=== PATIENT | female | born 1960 | race Caucasian/White ===

== ENCOUNTER → 2019-02-25 11:43 | Outpatient (CLI) | payer SELFPAY ==
[2019-02-25 15:11] LABS: Anion Gap 5 (5-15); BUN 10 mg/dL (7-18); BUN/Creat Ratio 11.6 RATIO (10-20); Calcium,Total 9.4 mg/dL (8.5-10.1); Chloride 108 mmol/L (98-107); Cholesterol 196 mg/dL (200); Creatinine, Serum 0.86 mg/dL (0.55-1.02); EST Glomerular Filtration Rate 71 mL/min (>60); Est Glom Filt Rate - Afr Amer 86 mL/min (>60); Glucose 72 mg/dL (74-106); High Density Lipoprotein 87 mg/dL; Sodium Level 142 mmol/L (136-145); Triglycerides 56 mg/dL; Very Low Density Lipoprotein 11 mg/dL (5-40)
== END ==
PROVIDERS: Family Provider Family Medicine; PCP Family Medicine; Referring Provider Family Medicine; Visit Provider Family Medicine
DX: Z00.00 Encounter for general adult medical examination without abnormal findings (principal)
CPT/HCPCS: 36415; 80048; 80061; 82306; 84443

== ENCOUNTER → 2019-02-27 11:48 | Outpatient (CLI) | payer SELFPAY ==
--- NOTE | 2019-02-27 11:52 | BI_ITS ---
MAMMOGRAPHY - BILATERAL SCREENING REASON FOR EXAM: Female, 58 years old. Routine annual screening examination. PERTINENT HISTORY: Non-contributory. TECHNIQUE: Digital bilateral breast cheri (3D mammographic acquisition) in the CC and MLO projections. 2-D mediolateral oblique (MLO) and craniocaudad (CC) views of both breasts were obtained. CAD: Full Field Digital Mammography with Computer Added Detection was performed. COMPARISON: Comparison is made with prior examination dated February 19, 2014. FINDINGS: Breast Composition: There are scattered areas of fibroglandular density. There are no dominant masses or suspicious calcifications. Stable small benign-appearing bilateral axillary lymph nodes. No other significant abnormalities are identified. There has been no significant change since the prior study. BI/SCREEN MAMM (CAD) W/CHERI BILAT IMPRESSION: Stable bilateral screening mammogram. Yearly follow-up mammogram recommended. (A) ASSESSMENT CATEGORY: BIRADS Category 2: Benign. A letter regarding these results will be sent to the patient by the facility within 30 days. Approximately 10% of breast cancers are not detected by mammography. A normal mammogram should not delay biopsy of a clinically suspicious abnormality. [id number] Electronically Signed: Bashir Guzman, at 8:14 EST , Service support ,
== END ==
PROVIDERS: Family Provider Family Medicine; PCP Family Medicine; Referring Provider Family Medicine; Visit Provider Family Medicine
DX: Z00.00 Encounter for general adult medical examination without abnormal findings (principal); Z12.31 Encounter for screening mammogram for malignant neoplasm of breast
CPT/HCPCS: 77063; 77067

== ENCOUNTER → 2020-05-15 11:27 | Outpatient (CLI) | payer SELFPAY ==
--- NOTE | 2020-05-15 11:40 | RAD_ITS ---
STUDY: X-RAY - CERVICAL SPINE REASON FOR EXAM: Female, 59 years old. CERVICAL RADICULOPATHY. NECK PAIN X 1 WEEK THAT RADIATES DOWN LEFT ARM. HX CERVICAL FUSION 25 YEARS AGO. TECHNIQUE: 5 view(s) of the cervical spine were obtained. COMPARISON: None FINDINGS: Normal anterior atlantoaxial articulation. Normal odontoid process. Normal cervical lordosis. Status post discectomy and fusion at C5/C6 with anatomic alignment. Normal vertebral bodies and endplates. Focal disc space narrowing and osteophyte formation at C6-C7 consistent with degenerative disc disease. Normal visualized intervertebral neuroforamina. The soft tissue structures are unremarkable. RAD/Cerv Spine 4 or 5 Views IMPRESSION: Status post discectomy and fusion at C5/C6 with degenerative disc disease at C6-C7. Electronically Signed: Osmin Watson MD at 16:57 EST Tel , Service support ,
== END ==
PROVIDERS: PCP Family Medicine; Referring Provider Chiropractor; Visit Provider Chiropractor
DX: M54.12 Radiculopathy, cervical region (principal)
CPT/HCPCS: 72050

== ENCOUNTER 2020-06-19 09:00 | Outpatient (RCR) | payer SELFPAY ==
--- NOTE | 2020-05-27 10:54 | HP.PTEVAL ---
Patient's Visit Information AMERICA ROSALES is a 59 year old F referred to Physical Therapy by Dr. Osmani Cruz DC with a diagnosis of cervical radiculopathy. Date of Evaluation: 05/27/20 Physical Therapist: Rom Nur, DPT, OCS, CSCS - Visit Plan Frequency: 2-3x /Week Duration: 4-6 Weeks Plan: up to 2-3x/week for 2-4 weeks for : cervical Tamanna based ROM progression of forces to tolerance, manual as needed traction and PROM, strength posture adn L UE ext rotators and flexors of shoulder, Return to function activities. Pt scheduled one visit next week and if motion and strength improved then can progress to home strength. if not improving then work on manual and strength progressiona nd increase frequency. Back to family doctor if strength not improved in two weeks. - Subjective Has neck and shoulder pain. Got pickle ball injury in R knee on 04/22 and treated adn it got better. 1.5 weeks later she woke up with neck pain.Has been going to chiropractor and also has h/o fusion in neck c56. 80-90% better with chiropractic. However was really sore yesterday after mondays visit. Pain is in L neck and shoulder. Down arm to elbow. it is intermittent and worse with lying down at night. Lifting while bending forward is tough. Hard to lift arm and cannot move it to swim which she enjoys. Babysitting grandchild 9 months has been eliminated as she cannot pick him up. Numbness and tingling is present at night . Has been sleeping on back as lying on side is painful. Not employed. Normally would be swimming 3x/week, walking 6 days week, pickle ball 2x/week. - Pain L neck adn shoulder. Pain Intensity (Out of 10): 2 Pain Intensity Range: 0, 8 - Objective Posture is forward scap adn FW head minimally. reflexes 2/3 bi and tri. Sensation UE WNL to gross light touch. Strength L flexiona dn abduction adn ext rotation 3/5, elbow flex ext 4/5, IR 4/5 all on L, R is 4/5. Hand and wrist ROM and strength WFL. elbow ROM WFL, Shoulder AROM WNL except is hesitant.cervical aROM 40 ext adn 60 B rotations to start but hesitant to get to end range. Improved ROM after repeated ext to 55 adn 65 rotations but still hesitant, not overly painful. Scapula are moving well. - c/s compression but tenses alot. - drop arm, - ext rotation lag but weak. Repeated motion: repeated protrusiona dn flexion NE. repeated retraction NE. repeated ext increases ROM wuickly and slightly increased strength l ext rotation. - Goals Goal 1:: Full c/s AROM without pain or hesitation Goal Time Frame: 4-6 Weeks Goal 2:: Symmetrial strength L to R shoulder flexors and eternal rotators Goal Time Frame: 4-6 Weeks Goal 3:: Pt feel back to 90% of simón ctivities without increased symptoms. Goal Time Frame: 4-6 Weeks Goal 4:: neck oswestry score 10 or less. Goal Time Frame: 4-6 Weeks - Rehabilitation Potential Physical Therapy Diagnosis: cervical radiculopathy Rehabilitation Potential: Fair - Anticipated Interventions Patient/Client Instruction: Educate patient on: Condition, Plan of Care For the Purpose of:: To decrease pain, To increase ROM Therapeutic Exercise to Include: Strength training, Postural training, Passive ROM, Active ROM, Tamanna Exercises For the Purpose of:: To decrease pain, To increase ROM, To improve muscle performance and motor function, To improve gait and locomotor functions Manual Therapy Techniques to Include: Mobilization, Passive ROM For the Purpose of:: To decrease pain, To increase ROM, To improve muscle performance and motor function Thank you for the opportunity to evaluate your patient. For Medicare and Medicare HMO plans, please review the plan of care and approve it. It will need to be FAXED BACK to us at [phone] for Medicare purposes. For Medicare only, by signing this I certify the plan of care. Please let me know if there are questions or concerns regarding this plan of care. Physician Signature: Date:
--- NOTE | 2020-06-19 09:34 | HP.PTREVAL ---
Dr. Osmani Cruz, THAI, It has been my pleasure to treat AMERICA ROSALES over the last 6 visits for cervical radiculopathy. Please see the progress note below for an update on the physical therapy plan of care! Subjective: I did great. Ex goign well. Not really any neck pain. Still hard to lie on side. Walked 7 miles per day and kayaked and paddleboard. Feels like she is getting stronger. Wants to play pickleball. No f/u with doctor. HEP going well. Objective/Function: 65 L rotation and 60 R rotation. Ext is 70 degrees. 22# flexion, 11 # ext rotation. firm endfeel R rotation. Posture is improved. ROM is improved. Strength in L UE is improving. Overall doing much better adn getting back to activity. L arm still weak vs R but much improved. Appropriate to cotninue via HEP adn f/u in 3 weeks to ensure cotniuation of progress toward goals. May start gentle pickle ball and swimming. Plan Plan: f/u 2-3 weeks to check motion, strength L UE and pickle ball/swimming tolerance. Fair prognosis. Goals Goal 1:: Full c/s AROM without pain or hesitation Goal Time Frame: 4-6 Weeks Goal Progress: met except R rotation Goal 2:: Symmetrial strength L to R shoulder flexors and eternal rotators Goal Time Frame: 4-6 Weeks Goal Progress: improving Goal 3:: Pt feel back to 90% of simón ctivities without increased symptoms. Goal Time Frame: 4-6 Weeks Goal Progress: 85% Goal 4:: neck oswestry score 10 or less. Goal Time Frame: 4-6 Weeks Goal Progress: Goal Met Anticipated Interventions Patient/Client Instruction: Educate patient on: Condition, Plan of Care For the Purpose of:: To decrease pain, To increase ROM Therapeutic Exercise to Include: Strength training, Postural training, Passive ROM, Active ROM, Melani Exercises For the Purpose of:: To decrease pain, To increase ROM, To improve muscle performance and motor function, To improve gait and locomotor functions Manual Therapy Techniques to Include: Mobilization, Passive ROM For the Purpose of:: To decrease pain, To increase ROM, To improve muscle performance and motor function Please do not hesitate to contact me at [phone] by phone or if you have questions or concerns regarding this new plan of care! Sincerely, Rom Nur, DPT, OCS, CSCS
--- NOTE | 2020-07-02 09:33 | HP.PTDCSUM ---
It has been my pleasure to treat AMERICA ROSALES referred by Dr. Osmain Cruz DC, with the diagnosis of cervical radiculopathy for a total of 6 visit(s). Discharge Date: Please see the following information for a summary of their discharge status. Subjective: I did great. Ex goign well. Not really any neck pain. Still hard to lie on side. Walked 7 miles per day and kayaked and paddleboard. Feels like she is getting stronger. Wants to play pickleball. No f/u with doctor. HEP going well. L neck adn shoulder. Pain Intensity (Out of 10): 0 % Improvement: 90 Objective/Function: 65 L rotation and 60 R rotation. Ext is 70 degrees. 22# flexion, 11 # ext rotation. firm endfeel R rotation. Posture is improved. ROM is improved. Strength in L UE is improving. Overall doing much better adn getting back to activity. L arm still weak vs R but much improved. Appropriate to cotninue via HEP adn f/u in 3 weeks to ensure cotniuation of progress toward goals. May start gentle pickle ball and swimming. Goal 1:: Full c/s AROM without pain or hesitation Goal Progress: met except R rotation Goal 2:: Symmetrial strength L to R shoulder flexors and eternal rotators Goal Progress: improving Goal 3:: Pt feel back to 90% of simón ctivities without increased symptoms. Goal Progress: 85% Goal 4:: neck oswestry score 10 or less. Goal Progress: Goal Met Plan: Pt cancelled last visit stating she is doing well adn is very happy. Will not need to return. D/C If there are questions or concerns regarding this patient's physical therapy, please feel free to call me at [phone]. Thank you for the referral of this patient. Sincerely, Rom Nur, DPT, OCS, CSCS
== END 2020-06-19 19:00 | disposition home or self-care (01) ==
LOC: PT 09:00
PROVIDERS: PCP Family Medicine; Referring Provider Chiropractor; Visit Provider Chiropractor
DX: M54.12 Radiculopathy, cervical region (principal)
CPT/HCPCS: 97012; 97110; 97140; 97162; 97164

== ENCOUNTER 2022-05-25 04:28 | Emergency (ER) | payer OTHER, SELFPAY ==
[2022-05-25 04:29] VITALS: PULSE 74; RESP 19; TEMP 36.1; O2SAT 99; BMI 26.0
--- NOTE | 2022-05-25 04:45 | CT_ITS ---
STUDY: CT BRAIN WITHOUT CONTRAST REASON FOR EXAM: Female, 61 years old patient with two recent syncopal episodes while on the toilet. Patient has had closed head injury. RADIATION DOSAGE (If Supplied By Facility): CTDIvol = ( 44.99 ) mGy, DLP = ( 829.85 ) mGycm TECHNIQUE: Transaxial CT imaging of the brain was performed without administration of intravenous contrast material. Multiplanar reformations are submitted for interpretation. Individualized dose optimization techniques were used for this CT. COMPARISON: No relevant priors. FINDINGS: Normal soft tissue structures. Normal calvarium. There is mild cerebral atrophy with widening of the extra-axial spaces and ventricular dilatation. Normal white matter tracts of the cerebral hemispheres. Normal basal ganglia and thalami. Normal brainstem. Normal cerebellum. There is no intracranial hemorrhage. There are no findings of an acute ischemic infarction. Normal visualized paranasal sinuses. CT/Brain/Head without Contrast IMPRESSION: 1. Chronic involutional changes of the brain. 2. No CT evidence of acute intracranial hemorrhage. Electronically Signed: Le Rendon MD at 6:10 EST ,
--- NOTE | 2022-05-25 04:45 | EKG12_ITS ---
Test Reason : DYSRHYTHMIA Blood Pressure : / mmHG Vent. Rate : 069 BPM Atrial Rate : 069 BPM P-R Int : 130 ms QRS Dur : 078 ms QT Int : 434 ms P-R-T Axes : 055 077 044 degrees QTc Int : 465 ms Normal sinus rhythm Normal ECG Confirmed by RACIEL WU, ZACARIAS ([id number]), production editor AMAURI COLLINS ([id number]) on 05/27/2022 10:27:37 AM Referred By: BB Confirmed By:ZACARIAS SCHRADER MD
--- NOTE | 2022-05-25 04:46 | EDS_ITS ---
HPI HPI - GI History of Present Illness Chief Complaint: Nausea/Vomiting/Diarrhea Informant: patient, spouse/S.O. and EMS Nausea/Vomiting/Emesis GI Symptom: Positive for Nausea and Vomiting Onset: Hours (2) Quality: Positive for Nonbilious Severity: Severe Diarrhea/Melena/Hematochezia GI Symptom: Positive for Diarrhea; Negative for Melena or Hematochezia Onset: Hours (2) Stool Quality: Positive for Watery; Negative for Black, Maroon or BRB per rectum Severity: Severe Narrative Narrative: Patient woke up about 2 hours ago feeling poorly, having chills, and since then has had profuse nonbloody nonbilious vomiting and diarrhea. She denies any abdominal pain. She states she feels extremely weak. states she was unable to stand or walk because of that; she tried, stood up and passed out, fell down and hit her head. She denies having contact with anyone ill that she knows of recently. She ate similar foods this past day to her and he is not ill. No recent travel out of the area or the country. She felt fine when she went to bed last night, she presents around 4:30 AM for this. Patient provides very little history, most of it comes from her . He states she has been doing intermittent fasting for the past week, and yesterday she donated blood. PFSH PFS Medical History no medical history Home Medications ondansetron 4 mg disintegrating tablet 8 mg PO Q8H PRN PRN Nausea #20 tabs 05/25/22 [Rx Last Taken Unknown] Social History Smoking Status: Never smoker ROS ROS ED Review of Systems ROS Unobtainable: other Details: limited ROS due to condition Constitutional Constitutional ED: Reports chills, fatigue, headache(s) and weakness; Denies fever(s) Eyes Eyes: Denies change in vision or diplopia ENT ENT ED: Denies rhinorrhea or sore throat Cardiovascular Cardiovascular: Denies chest pain or palpitations Respiratory/Chest Respiratory/Chest: Denies cough or dyspnea Gastrointestinal Gastrointestinal: Reports diarrhea, nausea and vomiting; Denies abdominal pain or melena Musculoskeletal Musculoskeletal: Denies back pain or neck pain Neurologic Neurologic: Reports headache(s); Denies paresthesias or weakness EXAM Physical Exam Const Vital Signs: 05/25/22 04:29 Temperature 97 F L Temperature Source Temporal Pulse Rate 74 Respiratory Rate 19 H Pulse Ox 99 Oxygen Delivery Method Room Air Positive well nourished and well developed Constitutional Narrative: Malaised-appearing, no distress. Tremulous diffusely/symmetrically, no rigors. General Appearance ED: well developed HEENT Reports moist mucous membranes normocephalic and atraumatic Eyes PERRL and EOMs intact bilaterally Neck full ROM and supple Resp normal respiratory effort and clear to auscultation bilaterally Cardio regular rate, regular rhythm and no murmurs Rate: Negative for tachycardic GI non-tender and non-distended Auscultation: hyperactive bowel sounds Palpation: soft Back/Spine no CVA tenderness General Back: other FROM Extremity normal to inspection and full ROM Extremity Narrative: Able to range extremities with very limited effort on behalf of patient General Extremety ED: Negative for edema, pulses abnormal or tenderness General Extremity: Negative for edema or pulses abnormal Neuro oriented x3, CN's II-XII intact bilaterally and no sensory deficits noted Sensorium / Orientation: awake and alert Motor Exam: strength 5/5 throughout Psych Mood & Affect: anxious Skin no rashes or lesions noted and no wounds Skin Narrative: Nasal bridge contusion/swelling, no other wounds MDM MDM MDM Narrative Medical decision making narrative: Work-up does show a nonspecific mild leukocytosis with a trend toward leftward shift, as well as mild elevation in BUN and creatinine compared to her baseline. Her total bilirubin is 1.5, there is no prior readings for this, the rest of her LFTs are normal. This is of unknown significance in context of no jaundice or abdominal pain, I do not think gallstones here really are likely, since she had no pain at all. On reevaluation she is feeling much better after a liter of IV fluids and Zofran. She has had no diarrhea thus far after couple hours in the emergency department to send for enteric bacterial panel, the etiology of this is unknown certainly could be viral as there has been prevalence of that in the community recently, and she has no specific risk factors in etiology. I offered admission she would prefer to go home, therefore we will give her p.o. challenge and got her up out of bed to see if she could walk. She says she was feeling much better, she said that at home she was having trouble walking because of being so tremulous and having a history of hip issues in combination. Lab Data Attestation: I reviewed the patient's lab results. Labs: Laboratory Results - last 24 hr 05/25/22 05/25/22 04:40 04:40 WBC 13.8 H RBC 3.99 L Hgb 12.3 Hct 36.1 L MCV 90.5 MCH 30.8 MCHC 34.1 RDW Std Deviation 47.8 H RDW Coeff of Valerie 14.2 Plt Count 242 MPV 10.5 Immature Gran % (Auto) 0.400 Neut % (Auto) 91.9 H Lymph % (Auto) 3.9 L [place] % (Auto) 3.0 Eos % (Auto) 0.5 Baso % (Auto) 0.3 Absolute Neuts (auto) 12.7 H Absolute Lymphs (auto) 0.54 L Nucleated RBC % 0 Sodium 141 Potassium 3.8 Chloride 107 Carbon Dioxide 23.0 Anion Gap 11 BUN 20 H Creatinine 1.25 H Estim Creat Clear Calc 43.12 Est GFR (MDRD) Af Amer 56 L Est GFR (MDRD) Non-Af 46 L BUN/Creatinine Ratio 16.0 Glucose 185 H Calcium 10.0 Total Bilirubin 1.50 H AST 25 ALT 23 Alkaline Phosphatase 62 Troponin I High Sens 7 Total Protein 7.7 Albumin 3.9 Globulin 3.8 Albumin/Globulin Ratio 1.0 Lipase 104 Rhythm Strip Rhythm Strip: Sinus Rhythm Rate: 70 Ectopy: None EKG Initial EKG: Attestation: I personally reviewed and interpreted this EKG as follows: Interpretation: Sinus Rhythm and No Acute Injury Pattern Comments: normal EKG Discharge Plan Triage Chief Complaint: Nausea/Vomiting/Diarrhea ED Provider: Aly Bazan Dx/Rx/DC Orders Clinical Impression: Nausea vomiting and diarrhea, Mild dehydration Instructions: ED Gastroenteritis, Viral (Adult) Prescriptions: New ondansetron [ondansetron] 4 mg tablet,disintegrating 8 mg PO Q8H PRN PRN (Reason: Nausea) Qty: 20 0RF Primary Care Provider: Last Rodriguez Referrals: Last Rodriguez MD [Primary Care Provider] - 1-2 Days if not improving Disposition Disposition: Home, Self Care
[2022-05-25 05:13] LABS: Absolute Lymphocyte Count 0.54 X10^3/uL (0.83-4.51); Absolute Neutrophil Count 12.7 X10^3/uL (2.0-7.7); Basophil# 0.04 X10^3/uL; Basophil% 0.3 % (0-1); Eosinophil# 0.07 X10^3/uL; Eosinophils% 0.5 % (0-5); Hematocrit 36.1 % (37-47); Hemoglobin 12.3 g/dL (12.0-15.0); Lymphocyte # 0.54 X10^3/ul (0.83-4.51); Lymphocyte % 3.9 % (19-41); Mean Corp Hgb Conc 34.1 g/dL (32-36); Mean Corpuscular Hgb 30.8 pg (27.0-32.0); Mean Corpuscular Volume 90.5 fL (81-99); Mean Platelet Vol. 10.5 fl (6.2-12.0); Monocyte# 0.42 X10^3/uL; NRBC Flagged by Analyzer 0 % (0-5); Neutrophil # 12.72 X10^3/uL (2.7-7.7); Neutrophil % 91.9 % (47-70); POSITIVE DIFFERENTIAL YES; Platelet Count 242 K/mm3 (150-450); RBC Distribution Width CV 14.2 % (11.6-14.6); RBC Distribution Width SD 47.8 fl (35.1-43.9); Red Blood Count 3.99 M/mm3 (4.2-5.4); White Blood Count 13.8 K/mm3 (4.4-11.0)
[2022-05-25 05:15] LABS: Differential Indicated SCAN CRITERIA MET
[2022-05-25 05:31] LABS: AST(SGOT) 25 U/L (15-37); Alanine Aminotransfer ALT/SGPT 23 U/L (13-56); Albumin, Serum 3.9 g/dL (3.2-5.0); Alkaline Phosphatase 62 U/L (45-117); Anion Gap 11 (5-15); BUN 20 mg/dL (7-18); Chloride 107 mmol/L (98-107); Creatinine, Serum 1.25 mg/dL (0.55-1.02); EST Glomerular Filtration Rate 46 mL/min (>60); Est Glom Filt Rate - Afr Amer 56 mL/min (>60); Estimated Creatinine Clearance 43.12 ml/min; Globulin 3.8 g/dL (2.2-4.2); Glucose 185 mg/dL (74-106); Lipase 104 U/L (73-393); Potassium 3.8 mmol/L (3.5-5.1); Protein, Total 7.7 g/dL (6.4-8.2); Sodium Level 141 mmol/L (136-145); Troponin-I HS 7 pg/mL (3.0-54.0)
[2022-05-25] MEDS: Ondansetron 4 MG/2 ML Vial IV (05:41)
[2022-05-25] MEDS: 0.9% Normal Saline 1,000 ML 999 ML IV ×2 (05:41→06:08)
[2022-05-25 08:47] VITALS: BP 117/69; PULSE 73; RESP 17; O2SAT 98
== END 2022-05-25 08:47 | disposition home or self-care (01) ==
PROVIDERS: Emergency Provider Emergency Medicine; PCP Family Medicine; Visit Provider Emergency Medicine
DX: E86.0 Dehydration (principal); R11.2 Nausea with vomiting, unspecified; R55 Syncope and collapse; R19.7 Diarrhea, unspecified
CPT/HCPCS: 70450; 80053; 83690; 84484; 85025; 93005; 96374; 99285; J7030; J2405

== ENCOUNTER → 2023-02-20 | Outpatient (CLI) | payer SELFPAY ==
--- NOTE | 2023-02-20 11:57 | EKG12_ITS ---
Test Reason : PRE OP Blood Pressure : / mmHG Vent. Rate : 064 BPM Atrial Rate : 064 BPM P-R Int : 128 ms QRS Dur : 082 ms QT Int : 398 ms P-R-T Axes : 069 083 054 degrees QTc Int : 410 ms Normal sinus rhythm Normal ECG Confirmed by MICHAEL WU, TIFFANY ([id number]), news video editor MILO VOEGL ([id number]) on 02/27/2023 7:29:48 AM Referred By: Sachin Russo Confirmed By:YOVANY RODRIGUEZ MD
[2023-02-20 12:51] LABS: Absolute Lymphocyte Count 1.26 X10^3/uL (0.83-4.51); Absolute Neutrophil Count 5.7 X10^3/uL (2.0-7.7); Basophil# 0.06 X10^3/uL; Basophil% 0.8 % (0-1); Eosinophils% 1.3 % (0-5); Hematocrit 40.7 % (37-47); Hemoglobin 13.2 g/dL (12.0-15.0); Lymphocyte # 1.26 X10^3/ul (0.83-4.51); Lymphocyte % 16.6 % (19-41); Mean Corp Hgb Conc 32.4 g/dL (32-36); Mean Corpuscular Hgb 30.3 pg (27.0-32.0); Mean Corpuscular Volume 93.3 fL (81-99); Mean Platelet Vol. 10.5 fl (6.2-12.0); Monocyte# 0.45 X10^3/uL; Monocyte% 5.9 % (0-10); NRBC Flagged by Analyzer 0 % (0-5); Neutrophil # 5.69 X10^3/uL (2.7-7.7); Neutrophil % 74.9 % (47-70); Platelet Count 229 K/mm3 (150-450); RBC Distribution Width CV 13.7 % (11.6-14.6); RBC Distribution Width SD 46.6 fl (35.1-43.9); Red Blood Count 4.36 M/mm3 (4.2-5.4); White Blood Count 7.6 K/mm3 (4.4-11.0)
[2023-02-20 13:26] LABS: Albumin, Serum 3.5 g/dL (3.2-5.0); Anion Gap 5 (5-15); BUN 13 mg/dL (7-18); BUN/Creat Ratio 13.3 RATIO (10-20); Calcium,Total 9.2 mg/dL (8.5-10.1); Chloride 105 mmol/L (98-107); Creatinine, Serum 0.98 mg/dL (0.55-1.02); EST Glomerular Filtration Rate 61 mL/min (>60); Est Glom Filt Rate - Afr Amer 74 mL/min (>60); Glucose 82 mg/dL (74-106); Potassium 3.9 mmol/L (3.5-5.1); Sodium Level 139 mmol/L (136-145)
== END | disposition home or self-care (01) ==
PROVIDERS: PCP Family Medicine; Referring Provider Specialist; Visit Provider Specialist
DX: Z01.810 Encounter for preprocedural cardiovascular examination (principal); Z01.818 Encounter for other preprocedural examination
CPT/HCPCS: 36415; 80048; 82040; 85025; 93005

== ENCOUNTER → 2023-07-05 | Outpatient (CLI) | payer OTHER, SELFPAY ==
[2023-07-05 15:23] LABS: Erythrocyte Sedimentation Rate 14 mm/hr (0-30)
[2023-07-05 15:43] LABS: Vitamin B12 613 pg/mL (211-911); Vitamin D,25 Hydroxy 66.4 ng/mL
[2023-07-05 15:49] LABS: ALB/GLOB Ratio 1.1 RATIO (0.9-2.4); AST(SGOT) 27 U/L (15-37); Alanine Aminotransfer ALT/SGPT 23 U/L (13-56); Alkaline Phosphatase 73 U/L (45-117); Anion Gap 6 (5-15); BUN 16 mg/dL (7-18); BUN/Creat Ratio 16.4 RATIO (10-20); CRP < 2.90 mg/L (0.0-3.0); Calcium,Total 9.5 mg/dL (8.5-10.1); Chloride 105 mmol/L (98-107); Cholesterol 216 mg/dL (200); Creatinine, Serum 0.97 mg/dL (0.55-1.02); EST Glomerular Filtration Rate 61 mL/min (>60); Est Glom Filt Rate - Afr Amer 74 mL/min (>60); Globulin 3.6 g/dL (2.2-4.2); Glucose 87 mg/dL (74-106); High Density Lipoprotein 91 mg/dL; Magnesium 2.2 mg/dL (1.6-2.6); Potassium 3.9 mmol/L (3.5-5.1); Protein, Total 7.6 g/dL (6.4-8.2); Rheumatoid Factor < 10.0 IU/mL (<15); Sodium Level 139 mmol/L (136-145); Thyroid Stim Hormone (TSH) 1.43 uIU/mL (0.358-3.74); Triglycerides 73 mg/dL; Very Low Density Lipoprotein 15 mg/dL (5-40)
[2023-07-07 14:10] LABS: ANTINUCLEAR ANTIBODIES DIRECT Negative (Negative)
== END | disposition home or self-care (01) ==
PROVIDERS: Family Medicine; PCP Family Medicine; Visit Provider Family Medicine
DX: M25.50 Pain in unspecified joint (principal); Z13.6 Encounter for screening for cardiovascular disorders
CPT/HCPCS: 36415; 80053; 80061; 82306; 82607; 83735; 84443; 85652; 86038; 86140; 86431

== ENCOUNTER → 2023-08-01 | Outpatient (CLI) | payer MEDICARE, SELFPAY ==
--- NOTE | 2023-08-01 16:00 | BI_ITS ---
MAMMOGRAPHY - BILATERAL SCREENING REASON FOR EXAM: Female, 63 years old. Routine annual screening examination. PERTINENT HISTORY: Non-contributory. TECHNIQUE: Digital bilateral breast cheri (3D mammographic acquisition) in the CC and MLO projections. 2-D mediolateral oblique (MLO) and craniocaudad (CC) views of both breasts were obtained. CAD: Full Field Digital Mammography with Computer Added Detection was performed. COMPARISON: Comparison is made with prior study dated February 27, 2019. FINDINGS: Breast Composition: There are scattered areas of fibroglandular density. There are no dominant masses or suspicious calcifications. No other significant abnormalities are identified. There has been no significant change since the prior study. BI/SCRN MAMM (CAD)W/CHERI BILAT IMPRESSION: Stable bilateral screening mammogram. Yearly follow-up mammogram recommended. (A) ASSESSMENT CATEGORY: BIRADS Category 1: Negative. A letter regarding these results will be sent to the patient by the facility within 30 days. Approximately 10% of breast cancers are not detected by mammography. A normal mammogram should not delay biopsy of a clinically suspicious abnormality. [id number] Electronically Signed: Bashir Guzman MD at 10:04 EDT ,
--- NOTE | 2023-08-01 16:00 | BD_ITS ---
STUDY: DUAL ENERGY X-RAY ABSORPTIOMETRY / DXA REASON FOR EXAM: Female, 63 years old. V76.12ScreeningBONE DENSITY REASON FOR EXAM TECHNIQUE: Bone Mineral Density (BMD) measurements of lumbar spine and right forearm were obtained. COMPARISON: None. FINDINGS: Lumbar Spine (L1-L4): g/cm2 (1.156) / T-score (1.0) / Z-score (2.8) Findings are suggestive of normal bone density with a low fracture risk. Right Forearm: g/cm2 (0.462) / T-score (-2.2) / Z-score (-0.6) BD/Dexa Bone Density Study IMPRESSION: The patient is considered osteopenic as outlined below according to World Jose Organization (WHO) criteria with a high fracture risk. Reference Information: The T-score is the number of standard deviations above or below the standard which is normal for young adults at their peak bone mineral density. The World Health Organization (WHO) interprets the T-scores as follows: Above -1 Normal bone density Between -1 and -2.5 Osteopenia Equal to / or below -2.5 Osteoporosis As a practical clinical guideline, osteopenia may be graded as follows: Mild -1 through -1.5 Moderate -1.6 through -2.0 Severe -2.1 through -2.4 The Z-score is the number of standard deviations above or below age-matched controls. A Z-score of less than -1.5 would be considered abnormal. References: 1. NIH Osteoporosis and Related Bone Diseases www osteo.org 2. International Society for Clinical Densitometry www iscd.org 3. National Osteoporosis Foundation www nof.org Electronically Signed: Bashir Guzman MD at 9:13 EDT ,
== END | disposition home or self-care (01) ==
PROVIDERS: PCP Family Medicine; Referring Provider Family Medicine; Visit Provider Family Medicine
DX: Z12.31 Encounter for screening mammogram for malignant neoplasm of breast (principal); Z13.820 Encounter for screening for osteoporosis; N95.9 Unspecified menopausal and perimenopausal disorder
CPT/HCPCS: 77063; 77067; 77080

== ENCOUNTER 2023-09-15 07:26 | Day surgery (SDC) | payer MEDICARE, SELFPAY ==
[2023-09-15 07:44] VITALS: BP 118/73; PULSE 71; RESP 18; TEMP 36.3; O2SAT 98; BMI 25.2
[2023-09-15] MEDS: Lactated Ringers 1,000 ML 15 ML IV (07:54)
--- NOTE | 2023-09-15 08:28 | H&P.OPEN ---
HPI - General HPI Narrative AMERICA ROSALES, is a 63 F who presents for screening colonoscopy. Her last colonoscopy was 10 years ago and was normal. She denies any abdominal pain or blood in the stool. She has family history of colon cancer in her father at an older age. PFS Medical History (Updated 09/12/23 @ 10:13 by Thelma Angela) Wears glasses Post-menopausal Arthritis Non-smoker Leg cramps Arthralgia Family history of colon cancer in father Home Medications ?Medication ?Instructions ?Recorded ?Last Taken ?Type ondansetron 4 mg disintegrating 8 mg (2 x 4 mg) PO Q8H PRN PRN 05/25/22 Unknown Rx tablet Nausea #20 tabs biotin 5,000 mcg chewable tablet 5,000 mcg PO DAILY 07/10/23 09/13/23 History cholecalciferol (vitamin D3) 50 50 mcg PO DAILY 07/10/23 09/13/23 History mcg (2,000 unit) capsule ibuprofen 200 mg tablet 400 mg PO Q6H PRN pain 07/10/23 Unknown History vit B complex 100 combo no.2 100 1 tab PO DAILY 07/10/23 09/13/23 History mg tablet,extended release (Balanced B-100 Complex) vit C 226 mg-vit E 90 mg-copper 1 cap PO DAILY 07/10/23 09/13/23 History 0.8 mg-zinc oxide-lutein 5 mg capsule (PreserVision Lutein) Allergy/AdvReac Type Severity Reaction Status Date / Time No Known Allergies Allergy Verified 09/15/23 07:42 Family History (Updated 07/10/23 @ 12:57 by Diamond Scott) Father Colon cancer Surgical History (Updated 09/12/23 @ 10:13 by Thelma Angela) History of 2 sections History of left hip replacement Hx of neck surgery History of right hip replacement Hx of colonoscopy Social History (Updated 07/10/23 @ 12:58 by Diamond Scott) household members: spouse current occupational status: retired Smoking Status: Never smoker details: occasional alcohol substance use type: does not use Past Medical/Surgical History Planned Operation Planned Operative Procedure(s): COLONOSCOPY-OA Previous Hospitalizations/Surgeries HX Hospitalizations: No Any Problems With Anesthesia: No You/Your Family Experience Fever (Hyperthermia) With Anes: No Cholinesterase deficiency: No Cardiovascular Hx Hypertension: No Respiratory Hx Sleep Apnea: No Hx Respiratory Tract Infection/Cold (presently): No Do You Snore Loudly (louder than talking or can be heard): Yes Do You Often Feel Tired/ Fatigued/ Sleepy Dring Daytime?: No Has Anyone Observed You Stop Breathing During Sleep?: No Result (for STOP score): Negative Smoking Status: Never smoker Neurological Does patient have nerve stimulator: No Miscellaneous Recent Exposure to Contagious Disease: No Allergies No Known Allergies Allergy (Verified 09/15/23 07:42) Discharge Is Pt Admitted From a Jail, or a Detention: No After D/C, Where Do you Plan to Go: Return Home Vital Signs Vital Signs Vital Signs: 09/15/23 07:44 09/15/23 07:44 Temperature 97.3 F L Temperature Source Temporal Pulse Rate 71 Respiratory Rate 18 Respiratory Pattern Normal Blood Pressure 118/73 Blood Pressure Mean 88 Blood Pressure Source Monitor Blood Pressure Position Semi-Fowlers Blood Pressure Location Right Arm Pulse Ox 98 Oxygen Delivery Method Room Air Weight Weight: 156 lb 8.451 oz Body Mass Index (BMI) 25.2 Physical Exam Const alert and oriented x3 HEENT normocephalic Eyes PERRL Resp normal respiratory effort and normal air movement Cardio regular rate and regular rhythm GI soft to palpation, non-tender and non-distended Extremity normal to inspection Assessment & Plan Assessment/Plan (1) Encounter for screening for malignant neoplasm of colon: PLAN: I explained endoscopy in detail to the patient. I explained the risks including but not limited to stroke or heart attack with anesthesia, perforation of the GI tract, bleeding, infection. I explained that any of these could necessitate further emergency surgery. The patient understands and all questions were answered sufficiently. The patient wishes to proceed with procedure. Nomi Preciado MD Pager: [facility] [address] [place] [address], [address] [place] [address] Office: Surgery Risks - Colonoscopy Risks Include but are not Limited To: Risks include but are not limited to: Bleeding, perforation requiring further surgery, inability to complete colonoscopy requiring barium enema.
--- NOTE | 2023-09-15 08:54 | OP.CCLET_ITS ---
09/15/2023 Mare Pierre Do Re : Colonoscopy procedure for Marcela Garcia Dear Ignacio This procedure was performed on Friday, September 15, 2023. My impressions and recommendations are as follows: Impressions : - The entire examined colon is normal on direct and retroflexion views. - No specimens collected. Recommendations : - Discharge patient to home. - Resume previous diet. - Continue present medications. - Repeat colonoscopy in 10 years for screening purposes. My findings are described in the full procedure note, which is enclosed. If I can be of further assistance, please feel free to contact me at Doctor phone number(s): , Work: . Sincerely, Nomi Preciado MD 09/15/2023 8:54:05 AM This report has been signed electronically.
--- NOTE | 2023-09-15 08:54 | OP.COLON_ITS ---
Patient Name: Marcela Garcia Procedure Date: 09/15/2023 8:25 AM Date of : 1960 Age: 63 Procedure: Colonoscopy Indications: Screening for colorectal malignant neoplasm Providers: Nomi Preciado MD Referring MD: Mare Pierre Do Medicines: Propofol per Anesthesia Patient Profile: This is a 63 year old female. Refer to note in patient chart for documentation of history and physical. Last Colonoscopy: 10 years ago. Complications: No immediate complications. Procedure: Pre-Anesthesia Assessment: - Prior to the procedure, a History and Physical was performed, and patient medications and allergies were reviewed. The patient's tolerance of previous anesthesia was also reviewed. The risks and benefits of the procedure and the sedation options and risks were discussed with the patient. All questions were answered, and informed consent was obtained. Prior Anticoagulants: The patient has taken no anticoagulant or antiplatelet agents. After reviewing the risks and benefits, the patient was deemed in satisfactory condition to undergo the procedure. After I obtained informed consent, the scope was passed under direct vision. Throughout the procedure, the patient's blood pressure, pulse, and oxygen saturations were monitored continuously. The pediatric colonoscope was introduced through the anus and advanced to the cecum, identified by appendiceal orifice and ileocecal valve. The colonoscopy was performed without difficulty. The patient tolerated the procedure well. The quality of the bowel preparation was good. The ileocecal valve, appendiceal orifice, and rectum were photographed. Scope In: 8:37:35 AM Scope Withdrawal Time 0 hours 6 minutes 5 seconds Scope Out: 8:51:04 AM Total Procedure Duration Time 0 hours 13 minutes 29 seconds Findings: The entire examined colon appeared normal on direct and retroflexion views. Impression: - The entire examined colon is normal on direct and retroflexion views. - No specimens collected. Recommendation: - Discharge patient to home. - Resume previous diet. - Continue present medications. - Repeat colonoscopy in 10 years for screening purposes. Procedure Code(s): --- Professional --- 40684, Colonoscopy, flexible; diagnostic, including collection of specimen(s) by brushing or washing, when performed (separate procedure) Diagnosis Code(s): --- Professional --- Z12.11, Encounter for screening for malignant neoplasm of colon CPT copyright 2021 [employer]. All rights reserved. The codes documented in this report are preliminary and upon community planning technician review may be revised to meet current compliance requirements. Nomi Preciado MD 09/15/2023 8:54:05 AM This report has been signed electronically. Number of Addenda: 0 Note Initiated On: 09/15/2023 8:25 AM
[2023-09-15 08:55] VITALS: BP 118/73; BP 95/68; PULSE 53; RESP 16; TEMP 36.2; O2SAT 97
[2023-09-15 09:00] VITALS: BP 118/73; BP 85/63; PULSE 53; RESP 16; O2SAT 96
[2023-09-15 09:05] VITALS: BP 118/73; BP 98/63; PULSE 54; RESP 16; O2SAT 97
[2023-09-15 09:08] VITALS: BP 103/64; BP 118/73; PULSE 48; RESP 16; TEMP 36.1; O2SAT 98
[2023-09-15 09:28] VITALS: BP 118/73
== END 2023-09-15 09:37 | disposition home or self-care (01) ==
LOC: EN 07:26 → AC 07:27
PROVIDERS: PCP Family Medicine; Referring Provider Family Medicine; Visit Provider Surgery
PROC: 0DJD8ZZ Inspection of Lower Intestinal Tract, Via Natural or Artificial Opening Endoscopic (ICD-10-PCS; CPT 45378; principal; 2023-09-15 08:25)
DX: Z12.11 Encounter for screening for malignant neoplasm of colon (principal); Z80.0 Family history of malignant neoplasm of digestive organs
CPT/HCPCS: G0121; J7120; J2405

== ENCOUNTER → 2024-08-06 | Outpatient (CLI) | payer MEDICARE, SELFPAY ==
--- NOTE | 2024-08-06 13:12 | BI_ITS ---
EXAM: SCRN MAMM (CAD)W/CHERI BILAT DATE: 08/06/2024 CLINICAL HISTORY: F, Age 64 y/o , SCREENING No family history. BREAST CANCER RISK ASSESSMENT: Not assessed. TECHNIQUE: Bilateral screening digital breast tomosynthesis with 2D and 3D images. Computer aided detection. COMPARISON: Prior exam(s) dated comparison is made with prior study dated August 01, 2023.. FINDINGS: TISSUE DENSITY: The breast tissue is composed of scattered area of fibroglandular density. Bilateral Breast Mammographic Findings: No significant masses, calcifications or other abnormalities are identified. No suspicious masses, areas of developing architectural distortion, or suspicious calcifications. There has been no significant interval change. BI/SCRN MAMM (CAD)W/CHERI BILAT IMPRESSION: OVERALL FINAL ASSESSMENT: BIRADS 1 NEGATIVE RECOMMENDATION: Routine annual follow-up in 1 Year A letter with findings and recommendations will be mailed to the patient. Reading Location: [place] [id number]
== END | disposition home or self-care (01) ==
LOC: OPBI 13:11
PROVIDERS: PCP Family Medicine; Referring Provider Nurse Practitioner Family; Visit Provider Nurse Practitioner Family
DX: Z12.31 Encounter for screening mammogram for malignant neoplasm of breast (principal)
CPT/HCPCS: 77063; 77067

== ENCOUNTER 2024-09-26 13:51 | Outpatient (CLI) | payer MEDICARE, SELFPAY ==
[2024-10-03 12:09] LABS: Chlamydia By Nucleic Acid AMP Negative (Negative); Gonococcus By Nucleic Acid AMP Negative (Negative); Trich. Vag By Nucleic Acid AMP Negative (Negative)
[2024-10-14 08:21] LABS: HPV Reflexed? YES, CHARGE PATIENT
== END 2024-09-26 23:59 | disposition home or self-care (01) ==
LOC: LABSPEC 13:53
PROVIDERS: PCP Family Medicine
DX: Z12.4 Encounter for screening for malignant neoplasm of cervix (principal)
CPT/HCPCS: 87491; 87591; 87624; 88175; G0145

== ENCOUNTER → 2024-10-16 | Outpatient (CLI) | payer MEDICARE, SELFPAY ==
[2024-10-22 16:08] LABS: HPV APTIMA, High Risk Negative (Negative)
== END | disposition home or self-care (01) ==
LOC: LABSPEC 15:02
PROVIDERS: PCP Family Medicine; Visit Provider Family Medicine
DX: Z12.4 Encounter for screening for malignant neoplasm of cervix (principal)
CPT/HCPCS: 87624; 88175; G0145